=== PATIENT | male | born 1975 ===

== ENCOUNTER 2017-05-15 00:46 | Emergency (ER) | payer OTHER ==
[~2017-05-15] VITALS: Ht 185.4 cm; Wt 104.5 kg
[2017-05-15 00:51] VITALS: BP 167/111; PULSE 81; RESP 16; O2SAT 99
--- NOTE | 2017-05-15 01:59 | ED.REPORT ---
HPI-General Illness Date of Service May 15, 2017 ED Provider: Price Powell Raul WAGNER Pt is a 41 y/o male with a history of PTSD who presents to the ED c/o methamphetamine use onset 3 days ago. He has been intermittently snorting meth for 7 days, and last used 2 hours before coming to ED. Additional symptoms include agitation and cramping under L arm. He denies SOB, chest pain, focal weakness, abdominal pain, nausea, vomiting, diarrhea, fever, or chills. He states he just wants "a shot to help him calm him down". Nursing Notes Stated Complaint: METH USE Chief Complaint: Substance Abuse Nursing Notes Reviewed: Yes Allergies: Coded Allergies: No Known Allergies (Unverified , 05/15/17) General Time Seen by MD: 01:58 Chief Complaint Other (Meth use) Hx Obtained From: Patient Arrived By: Walk-in Sudden in Onset?: Yes Onset Occurred: 1 - 4 hours ago Severity: Current: No pain currently Severity: Maximum: No pain Recent Healthcare: No recent doctor visit, No recent hospitalization Similar Sx Previous: Yes Past Medical History Past Medical History PTSD Past Surgical History Denies Social History Drug Use: Meth Ambulatory Status Independent Review of Systems Meth use Cramping under L arm Full Review of Systems Constitutional: Denies: Chills, Fever Respiratory: Denies: Shortness of breath Cardiovascular: Denies: Chest pain GI: Denies: Abdominal pain, Diarrhea, Nausea, Vomiting Neurologic: Denies: Focal weakness Psychiatric: Reports: Agitation Complete sys rev & neg: except as marked. Physical Exam Vital Signs Vital Signs Date Time Temp Pulse Resp B/P Pulse Ox O2 Delivery O2 Flow Rate FiO2 05/15/17 02:21 36.7 80 16 158/90 98 Room Air 05/15/17 00:51 36.8 81 16 167/111 99 Room Air Initial VS: Reviewed Head / Eyes: Atraumatic, Normocephalic Neck: Supple, Full range of motion Abdomen / GI: Soft, Non-tender Extremities: Vascular intact, Neuro intact, No swelling, No tenderness Skin: Warm, Dry, No cyanosis Neurologic: Alert, Oriented, Nonfocal General/Constitutional: Awake, Alert Behavior: Positive: Anxious Respiratory / Chest: Atraumatic, Breath sounds NL, Breath sounds = bilat, No respiratory distress Cardiovascular: Heart rate NL, Regular rhythm, Heart sounds NL Re-Eval/Medical Decision Med Decision/Clinical Course 41-year-old male with history of hypertension and hyperlipidemia as well as recurrent meth use by snorting presents with agitation requesting something to help him calm down. He has no other complaints or concerns tonight including chest pain, shortness of breath. He was given Ativan 1 mg by mouth and discharged home with follow-up at his primary clinic. Source of Hx: Old records Time of Eval: 01:58 Re-Evaluation/Progress Note: Discussed plan for discharge. Patient understands and agrees with plan. F/U instructions and RTER warnings given. All questions addressed at this time. Counseled Regarding: Diagnosis, Lab results, Need for follow-up, When/why to return to ED Discharge & Departure Primary Impression: Methamphetamine abuse Disposition: Home Discharge Condition All VS Reviewed: Yes Condition: Stable Patient Instructions: Methamphetamine Abuse (ED) Additional Instructions: Thank you for trusting us with your care tonight You were given Ativan 1 mg orally to help with your agitation from the methamphetamine. Please follow-up with the [facility] to discuss getting help to stop using meth. Return to the ER for any new or worsening symptoms Referrals: Doctor Alondra (PCP) Scribe Attestation Portions of this note were transcribed by Anamaria Sanchez. I, Dr. Duong, personally performed the history, physical exam and medical decision-making; I reviewed and confirmed the accuracy of the information in the transcribed note. copies to: Doctor Rhoda Cantu Gary R DO May 15, 2017 01:59 Anamaria Sanchez May 15, 2017 02:06
[2017-05-15] MEDS ORDERED: LORazepam 1 mg Tablet PO ONE (02:05)
[2017-05-15 02:21] VITALS: BP 158/90; PULSE 80; RESP 16; O2SAT 98
== END 2017-05-15 02:22 | disposition home or self-care (01) ==
LOC: SED 00:50
DX: F15.10 Other stimulant abuse, uncomplicated (principal); F43.10 Post-traumatic stress disorder, unspecified